=== PATIENT | female | born 1970 | race Caucasian/White ===

== ENCOUNTER 2020-01-29 06:01 | Inpatient (IN) | payer BC ==
[~2020-01-29] VITALS: Ht 157.5 cm; Wt 63.5 kg
[2020-01-29] VITALS (15 sets, daily range): BP systolic 91–110; BP diastolic 45–64
[2020-01-29] MEDS ORDERED: fentaNYL 100 mcg/2 mL IV ONE (06:54)
[2020-01-29] MEDS ORDERED: Midazolam 2mg/2ml Inj ONE (06:55)
[2020-01-29] MEDS ORDERED: Lidocaine 1% MPF 10mg/ml 5ml ONE (06:59)
[2020-01-29] MEDS ORDERED: ceFAZolin sod 1 GM in NS 55 ML IVPB ONE (07:00)
[2020-01-29] MEDS ORDERED: cefOXitin 1gm Inj ONE (07:04)
[2020-01-29] MEDS ORDERED: Duramorph PF 5mg/10ml amp ONE (07:04)
[2020-01-29] MEDS ORDERED: Rocuronium Bromide 100mg/10ml Inj IV ONE (07:05)
[2020-01-29] MEDS ORDERED: Succinylcholine 20mg/ml 10ml vial ONE (07:05)
[2020-01-29] MEDS ORDERED: Ropivacaine 5mg/ml Vial 20ml INJ ONE (07:07)
[2020-01-29] MEDS ORDERED: NS Irrig 1000ml IRRIG ONE ×2 (07:09→07:50)
[2020-01-29] MEDS ORDERED: OMEPRAZOLE20 M2 ORAL (07:27)
[2020-01-29] MEDS ORDERED: CRESTOR10 M2 ORAL (07:28)
[2020-01-29] MEDS ORDERED: NS Irrig 1000ml ONE (07:30)
[2020-01-29] MEDS ORDERED: Sterile Water Irrig 1000ml IRRIG ONE (07:30)
[2020-01-29] MEDS ORDERED: LR 1000ml ONE (07:30)
--- NOTE | 2020-01-29 07:38 | Pre-Procedure Note/Attestation ---
Pre-Procedure Note/Attestation Complete Prior to Procedure Planned Procedure: bilateral Procedure Narrative: Supracervical Hysterectomy, Bilateral Salpingectomy Indications for Procedure Pre-Operative Diagnosis: Large uterine fibroids Attestation I attest that I discussed the nature of the procedure; its benefits; risks and complications; and alternatives (and the risks and benefits of such alternatives ), prior to the procedure, with the patient (or the patient's legal fraud representative). I attest that, if there was a reasonable possibility of needing a blood transfusion, the patient (or the patient's legal fraud representative) was given the [facility] standardized written summary, pursuant to the [place] Blood Safety Act ([place] Health and Safety Code # 1645, as amended). I attest that I re-evaluated the patient just prior to the surgery and that there has been no change in the patient's H&P, except as documented below:NONE Macario Fragoso MD Jan 29, 2020 07:38
[2020-01-29] MEDS ORDERED: LR 1000ml 1,000 ML IVLG SCH (08:24)
--- NOTE | 2020-01-29 08:24 | Anethesia Preoperative Eval ---
Anesthesia Pre-op PMH/ROS General Date of Evaluation: Jan 29, 2020 Time of Evaluation: 07:20 Anesthesiologist: Jareth ASA Score: ASA 2 Mallampati Score Class I : Soft palate, uvula, fauces, pillars visible Class II: Soft palate, uvula, fauces visible Class III: Soft palate, base of uvula visible Class IV: Only hard plate visible Mallampati Classification: Class II Surgeon: Fouzia Diagnosis: Symptomatic uterine fibroids Surgical Procedure: Hysterectomy Anesthesia History: none Family History: no anesthesia problems Allergies: Coded Allergies: No Known Allergies (Unverified , 01/28/20) Medications: see eMAR Patient NPO?: Yes Past Medical History Cardiovascular: Denies: HTN, CAD, [place], valve dz, arrhythmia, other Pulmonary: Denies: asthma, COPD, DOROTEO, other Gastrointestinal/Genitourinary: Reports: GERD - mild; Denies: CRI, ESRD, other Neurologic/Psychiatric: Denies: dementia, CVA, depression/anxiety, TIA, other Endocrine: Denies: DM, hypothyroidism, steroids, other HEENT: Denies: cataract (L), cataract (R), glaucoma, [place] (L), [place] (R), other Hematology/Immune: Denies: anemia, DVT, bleeding disorder, other Musculoskeletal/Integumentary: Denies: OA, RA, DJD, DDD, edema, other PMH Narrative: as above PSxH Narrative: , breast augmentation, salpingectomy for ectopic , bunionectomy Anesthesia Pre-op Phys. Exam Physician Exam Last Vital Signs Date Time Temp Pulse Resp B/P (MAP) Pulse Ox O2 Delivery O2 Flow Rate FiO2 01/29/20 07:28 Room Air 01/29/20 07:24 97.0 60 18 110/64 (79) 97 Constitutional: NAD Neurologic: CN 2-12 intact Cardiovascular: RRR, no M/R/G Respiratory: CTA Gastrointestinal: S/NT/ND Airway Exam Mallampati Score: Class II MO: full Neck: flexible ROM: full Teeth: intact Dentures: no upper, no lower Anesthesia Pre-op A/P Labs see chart Urine Test Test 01/29/20 06:15 Urine HCG, Qualitative Negative (NEGATIVE) Studies Pre-op Studies: EKG - NSR Risk Assessment & Plan Assessment: ASA 2 Plan: Ga with ETT, intrathecal morphine for postop pain control Status Change Before Surgery: No Pre-Antibiotics Drug: Cefoxitin 1gr. Given Within 1 Hr of Incision: Yes Time Given: 08:02 Hong Templeton MD Jan 29, 2020 08:24
[2020-01-29] MEDS ORDERED: Meperidine 25mg/0.5ml Inj (FOR RIGORS ONLY) IV PRN (08:30)
[2020-01-29] MEDS ORDERED: Ketorolac 30mg Inj IV PRN (08:30)
[2020-01-29] MEDS ORDERED: DiphenhydrAMINE 50mg/ml Inj IVP PRN (08:30)
[2020-01-29] MEDS ORDERED: Metoclopramide 10mg/2ml Inj IVP PRN (08:30)
[2020-01-29] MEDS ORDERED: Acetaminophen (Non formulary) 100 ML IV ONE (08:30)
[2020-01-29] MEDS ORDERED: ePHEDrine 50mg/ml Inj ONE (08:39)
[2020-01-29] MEDS ORDERED: Sodium Chloride 10ml vial INJ ONE (08:39)
[2020-01-29] MEDS ORDERED: Neostigmine 1mg/ml 10ml Inj ONE (08:41)
[2020-01-29] MEDS ORDERED: Glycopyrrolate 0.2mg/ml 1ml Vial ONE (08:41)
[2020-01-29] MEDS ORDERED: NS 55ml IV ONE ×2 (08:54→08:59)
--- NOTE | 2020-01-29 10:44 | Brief Operative Note ---
Immediate Post Operative Note Operative Note Pre-op Diagnosis: Large uterine fibroids Procedure: Supracervical Hysterectomy Bilateral Salpingectomy Extensive Adhesion Lysis Enterolysis Post-op Diagnosis: same as pre-op Findings: consistent w/pre-op dx studies Surgeon: Macario Fragoso MD Padder Cushion: Mariaelena Ramirez MD Anesthesiologist: Jareth PETE Anesthesia: general Specimen: yes - Uterus, tubes Complications: none Condition: stable Fluids: LR @ 125 ml/hr Estimated Blood Loss: minimal - 80 ML Drains: none Implant(s) used?: No Macario Fragoso MD Jan 29, 2020 10:44
--- NOTE | 2020-01-29 10:53 | Immediate Post-Op Evaluation ---
Immediate Post-Op Evalulation Immediate Post-Op Evalulation Procedure: Open abdominal supracervical hysterectomy Date of Evaluation: Jan 29, 2020 Time of Evaluation: 10:51 IV Fluids: 1400 Blood Products: none Estimated Blood Loss: 100 Urinary Output: 350 Blood Pressure Systolic: 108 Blood Pressure Diastolic: 56 Pulse Rate: 73 Respiratory Rate: 20 O2 Sat by Pulse Oximetry: 99 Temperature (Fahrenheit): 97.8 Pain Score (1-10): 1 Nausea: No Vomiting: No Complications none Patient Status: reacts, patent, extubated, none Hong Templeton MD Jan 29, 2020 10:53
[2020-01-29] MEDS ORDERED: HYDROmorphone 1mg/ml Carpuject IVP PRN (11:00)
[2020-01-29] MEDS ORDERED: HYDROcodone/Acetamin 10/325 tab ORAL PRN (11:00)
[2020-01-29] MEDS ORDERED: Zolpidem 5mg tab ORAL PRN (11:00)
[2020-01-29] MEDS: LR 1000ml 1,000 ML IV SCH ×2 (12:39→20:24)
--- NOTE | 2020-01-29 18:15 | Operative Note - Dictated ---
DATE OF OPERATION: 01/29/2020 PREOPERATIVE DIAGNOSIS: Large uterine fibroids. POSTOPERATIVE DIAGNOSES: Large uterine fibroids plus peritoneal adhesions, omental adhesions, pelvic adhesions, and bowel adhesions. PROCEDURE PERFORMED: Supracervical hysterectomy with bilateral salpingectomy, enterolysis, and lysis of pelvic and omental adhesions. SURGEON: Macario Fragoso MD PROCEDURE IN DETAIL: After appropriate consents were signed, the patient was brought to the operating room, placed on table in the supine position. General endotracheal anesthesia was induced without complication. The patient was then prepped and draped in the usual fashion for the procedure. A Ribeiro catheter was placed preoperatively. At this time, Pfannenstiel incision was made. Incision was carried through the subcutaneous tissue and the fascia was identified. The fascia was incised transversely exposing the rectus muscle. Rectus muscle was exposed by reflecting the fascia both anteriorly and posteriorly away from the muscle. The muscle was then part of the end of the midline. The peritoneum was entered sharply. The procedure then continued with identifying the uterus. The uterus appeared to be excessively misshapen and had a larger anterior fibroid as well as a large posterior fibroid. There were extensive adhesions to the anterior peritoneum from omentum as well as adhesions to the posterior uterus and the bowel. The procedure then continued with lysis of adhesions, which was carried out safely and complete hemostasis was noted. At that time, Juan retractor was placed and the uterus was retracted out of the pelvis to visualize the surgical field. At this time, round ligaments were clamped, cut, and suture ligated bilaterally. The uterus was very large exaggerated due to the large size of the fibroid. The utero-ovarian ligament could not be easily identified and the tube was visualized on the right side. However, the ovary on the right side could not be well identified. The pedicle that was likely to be broad ligament along with utero-ovarian ligament was dissected away from the adhesions, and once the area was skeletonized from the adhesions, the opening in the broad ligament was made. A Zeppelin clamp was placed in the opening underneath including the utero-ovarian ligament. The utero-ovarians were clamped, cut, and ligated. A similar procedure was performed on the left side. However, the anatomy was better on the left side and the ovary could be identified along with the tube. At this time, bladder flap was developed. There were significant adhesions at the uterus and developing a bladder flap took approximately 10 to 15 minutes to visualize the cervix. At this time, the uterine vessels were clamped, cut, and suture ligated bilaterally. The cervix was now transected and uterus was extirpated from the field. At this time, the cervix was evaluated and cervical and endocervical mucosa was coned out using traction, countertraction technique with the Bovie knife. The cervix was closed and complete hemostasis was noted at the cervical stump. At this time, the tube on the right side was identified, clamped, and removed, and suture ligated. The left tube was also clamped, elevated, and suture ligated. At this time, the pelvis was examined. Hemostasis was noted at all the operative sites. The ovary on the left was well visualized; however, the ovary on the right could not be well visualized and appeared to be fully retroperitoneal. The ureter on the right side was identified, followed by the ureter on the left. Both sides appeared to be intact and peristaltic. At this time, additional adhesions along the anterior peritoneum from the omentum were lysed using Bovie knife. The peritoneum was closed using 2-0 Vicryl suture. The muscle was approximated in the midline and the fascia was closed using 0 Vicryl suture. The procedure then continued with closure of the subcutaneous tissue using plain suture and the skin was closed with 4-0 suture. The patient was brought to the room and tolerated the procedure very well. Macario Fragoso M.D. DR: TREVOR JOB#: [id number] CC:
[2020-01-29] MEDS: Docusate 100mg cap ORAL SCH (18:23)
[2020-01-30 03:00] VITALS: BP 109/65
[2020-01-30] MEDS: HYDROcodone/Acetamin 5/325 tab ORAL PRN ×3 (03:35→18:01)
[2020-01-30] MEDS: LR 1000ml 1,000 ML IV SCH ×2 (03:36→11:41)
[2020-01-30 05:50] LABS: BASOPHILS % (AUTO) 0.3 % (0.0-2.0); EOSINOPHILS % (AUTO) 0.7 % (0.0-3.0); HEMATOCRIT 36.6 % (37.0-47.0); LYMPHOCYTES % (AUTO) 16.6 % (20.0-45.0); MEAN CORPUSCULAR VOLUME 94 FL (80-99); MONOCYTES % (AUTO) 8.6 % (1.0-10.0); NEUTROPHILS % (AUTO) 73.8 % (45.0-75.0); PLATELET COUNT 133 K/UL (150-450); RED BLOOD COUNT 3.89 M/UL (4.20-5.40); RED CELL DISTRIBUTION WIDTH 12.2 % (11.6-14.8)
[2020-01-30 05:58] LABS: ANION GAP 4 mmol/L (5-15); BLOOD UREA NITROGEN 9 mg/dL (7-18); CALCIUM 7.9 MG/DL (8.5-10.1); CARBON DIOXIDE 30 MMOL/L (21-32); CHLORIDE 107 MMOL/L (98-107); CREATININE 0.9 MG/DL (0.55-1.30); POTASSIUM 3.7 MMOL/L (3.5-5.1); SODIUM 141 MMOL/L (136-145)
[2020-01-30 06:25] VITALS: BP 99/57
[2020-01-30] MEDS: Ketorolac 30mg Inj IV SCH ×3 (08:29→20:27)
[2020-01-30] MEDS: Docusate 100mg cap ORAL SCH ×2 (08:29→18:00)
[2020-01-30 11:42] VITALS: BP 97/44
[2020-01-30 16:00] VITALS: BP 121/71
[2020-01-30 20:00] VITALS: BP 113/71
[2020-01-31] VITALS: BP 119/76
[2020-01-31] MEDS: Ketorolac 30mg Inj IV SCH ×2 (01:47→08:26)
[2020-01-31 04:00] VITALS: BP 122/68
[2020-01-31 08:00] VITALS: BP 127/68
[2020-01-31] MEDS: Docusate 100mg cap ORAL SCH (08:25)
[2020-01-31] MEDS ORDERED: ADVIL200 MG ORAL (11:26)
[2020-01-31] MEDS ORDERED: Ketorolac 30mg Inj IV SCH (11:45)
[2020-02-01 07:03] VITALS: BP 126/65
--- NOTE | 2020-02-01 07:03 | 48 Hour Post Anesthesia Eval ---
Post Anesthesia Evaluation Procedure: Open abdominal supracervical hysterectomy Date of Evaluation: Feb 01, 2020 Time of Evaluation: 07:03 Blood Pressure Systolic: 126 0: 65 Pulse Rate: 70 Respiratory Rate: 14 Temperature (Fahrenheit): 98.5 O2 Sat by Pulse Oximetry: 96 Airway: patent Nausea: No Vomiting: No Hydration Status: adequate Cardiopulmonary Status: stable Mental Status/LOC: patient returned to baseline Post-Anesthesia Complications: none Follow-up care needed: N/A Evy Mast CRNA Feb 01, 2020 07:03
--- NOTE | 2020-02-01 16:40 | Discharge Summary ---
Discharge Summary Hospital Course Date of Admission Jan 29, 2020 at 06:01 Date of Discharge Jan 31, 2020 at 12:00 Admitting Diagnosis Large uterine fibroids Reason for Hospitalization: elective surgery SHILPA Corona is a 49 year old female who was admitted on Jan 29, 2020 at 06:01 for Uterine Fibroid,Abnormal Vaginal Bleeding Procedures s/p by Dr Lora Supracervical hysterectomy with bilateral salpingectomy, enterolysis, and lysis of pelvic and omental adhesion Hospital Course status post surgery course of recovery was uneventful initially IV fluids s/p perioperative antibiotics incision clean , dry and intact pain management was addressed; pain was controlled remained hemodynamically stable fall precautions maintained; safe for ambulation use of incentive spirometry was encouraged while in the bed tolerated diet , IV fluids discontinued GI prophylaxis provided antiemetics were on board as needed voided freely bowel regimen instituted patient was stable for discharge discharge instructions provided follow up with surgeon in the office as advised FINAL DIAGNOSES 1. Large uterine fibroids plus peritoneal adhesions, omental adhesions, pelvic adhesions, and bowel adhesions 2. Abnormal vaginal bleeding 3. S/P Supracervical hysterectomy with bilateral salpingectomy, enterolysis, and lysis of pelvic and omental adhesions Discharge Medications Continued Medications: Ibuprofen* (Advil*) 200 Mg Tablet 600 MG ORAL Q6H for pain, TAB (This prescription has been renewed) Omeprazole (Omeprazole) 20 Mg Capsule.dr 20 MG ORAL DAILY for as prescribed, CAP (This prescription has been renewed) Rosuvastatin Calcium* (Crestor*) 10 Mg Tablet 10 MG ORAL HS for as prescribed, TAB (This prescription has been renewed) Discharge Condition Upon Discharge: stable Discharge Vital Signs Last Vital Signs Date Time Temp Pulse Resp B/P (MAP) Pulse Ox O2 Delivery O2 Flow Rate FiO2 02/01/20 07:03 70 14 96 01/31/20 09:00 Nasal Cannula 2.0 01/31/20 08:56 98.1 01/31/20 08:00 127/68 (87) Discharge Disposition Patient was discharged home Discharge Instructions Discharge Instructions Special Instructions I have been assigned to complete a D/C Summary on this account. I was not involved in the patient management Sherrie Mcneil NP Feb 01, 2020 16:40
--- NOTE | 2020-02-02 10:03 | CDS Physician Query ---
Clarification is required for compliance, coding accuracy, and to reflect severity of illness for this patient. Dear Sherrie Mcneil NP. Date: 02/01/2020 CDI/CDS Name: Samuel Coles Admitting Diagnosis Large uterine fibroids Reason for Hospitalization: elective surgery - Open abdominal supracervical hysterectomy by Dr Geno Izaguirre 01/29/20] FINAL DIAGNOSES 1. Large uterine fibroids plus peritoneal adhesions, omental adhesions, pelvic adhesions, and bowel adhesions 2. Abnormal vaginal bleeding 3. S/P Supracervical hysterectomy with bilateral salpingectomy, enterolysis, and lysis of pelvic and omental adhesions Clinical Finding Show: LAB (01/29) : Chem: Calcium level 7.9 [8.5-10.1], Please Clarify the diagnosis associated with this finding: [ ] Hypocalcemia [ ] Finding no significant [ ] Other: Diagnosis: Present on Admission: [] Yes [] No [] Clinically Undetermined Physician signature Date Please also document in your Progress Notes and/or Discharge Summary and indicate if the condition was present on admission. MTDD
== END 2020-01-31 12:00 | disposition home or self-care (01) | DRG 743 ==
LOC: SDSOVERFLO 06:01 → 3E 12:00
PROC: 0UT90ZL Resection of Uterus, Supracervical, Open Approach (ICD-10-PCS; principal; 2020-01-29 07:30)
PROC: 0UT70ZZ Resection of Bilateral Fallopian Tubes, Open Approach (ICD-10-PCS; principal; 2020-01-29 07:30)
PROC: 0DNW0ZZ Release Peritoneum, Open Approach (ICD-10-PCS; principal; 2020-01-29 07:30)
DX: D25.9 Leiomyoma of uterus, unspecified (principal); N93.9 Abnormal uterine and vaginal bleeding, unspecified; K66.0 Peritoneal adhesions (postprocedural) (postinfection)
CPT/HCPCS: 36415; 80048; 81025; 85025; 86850; 86900; 86901; 87081; 94003; 94150; J2180; J2250; J2405; J2710; J2795